=== PATIENT | male | born 2000 | race Caucasian/White ===

== ENCOUNTER 2023-02-08 18:16 | Emergency (ER) | payer OTHER, SELFPAY ==
--- NOTE | 2023-02-08 18:32 | ED.EXTPRO ---
HPI - Extremity Problem General Chief complaint: Extremity Problem,Nontraumatic Stated complaint: L LEG PAIN Source: patient Mode of arrival: ambulatory Limitations: no limitations History of Present Illness HPI Narrative: 22-year-old male presented for complaint of left leg pain for 2 weeks. Endorses intermittent 'tightness' to the lower hamstring, behind the knee, and the inner knee. Denies known injury. States he has been doing yoga and weight lifting for years without change. Has not taken anything for pain. Denies redness or swelling to the LE, denies decreased ROM. Related Data Allergies Allergy/AdvReac Type Severity Reaction Status Date / Time NKDA Allergy Mild Other Uncoded 02/08/23 18:29 Review of Systems Review of Systems: CONSTITUTIONAL: Denies body aches, fever, chills CARDIOVASCULAR: Denies chest pain, palpitations, or edema. RESPIRATORY: Denies cough or dyspnea. GASTROINTESTINAL: Denies abdominal pain, nausea, vomiting, or diarrhea. SKIN: Denies rash, itching, or wounds. MUSCULOSKELETAL: per HPI NEUROLOGIC: Denies headache, numbness, tingling, or weakness. All systems reviewed & are unremarkable except as noted in HPI and below PMFSH Past Medical History Medical History (Updated 02/08/23 @ 18:49 by Kenia Pendleton APRN) No pertinent past medical history Family History Family History Grandparent Diabetes mellitus Hypertension Family history of cardiovascular disease Family history of throat cancer Other Family history of headache disorder Family history of lung cancer Family history of malignant neoplasm of brain Social History Social History Smoking status: Never smoker Alcohol intake: never Comments At time of signature, I have reviewed and agree with nursing past medical, surgical, social and family history unless otherwise noted. Please see nursing chart for further information. There is no relevant family history pertinent to the presenting complaint Exam Narrative: GENERAL: Well-appearing, well-nourished, and in no acute distress. CHEST: Speaks in full sentences. No respiratory distress. HEART: Regular rate and rhythm. Normal and equal peripheral pulses. EXTREMITIES: Left LE has normal strength and sensation, full range of motion at the knee without pain. No swelling or ecchymosis, No point tenderness. No open wounds or obvious deformity; alignment normal pulse palpable and equal bilaterally, skin warm, dry, pink. Capillary refill less than 3 seconds. Ambulates with steady gait SKIN: Warm, dry, no rash. NEURO: Alert and oriented x3. PSYCH: Normal mood and affect Course Course Emergency Course: Patient is aware of diagnosis, understands and agrees to treatment plan. Anticipatory guidance given. Patient agrees to follow-up as directed and is aware of reasons to seek care at the emergency department. Portions of this record may have been created with voice recognition software Level of Care: Express Care Visit Vital Signs Vital signs: Reviewed MDM - Extremity (Nontraumatic) MDM Narrative Medical decision making narrative: Discussed physical exam findings with patient. He was concerned of DVT after Internet research. Discussed possible etiologies. No symptomatic evidence of DVT. Suspect musculoskeletal injury. advised supportive measures and signs/symptoms to go to the ER. Pt is appropriate for outpt treatment and f/u. Differential Diagnosis Differential diagnosis: Likely gout, superficial thrombophlebitis, deep vein thrombosis of lower extremity and other (Tendinitis, bursitis, arthralgia) Discharge Plan Discharge Clinical Impression: Left leg pain Patient Disposition: Home, Self-Care Condition: Stable Instructions: P.R.I.C.E. Treatment (ED) Additional Instructions: Rest and elevate the left leg; activity as tolerated Continue
[2023-02-08 18:34] VITALS: BP 148/97; PULSE 88; RESP 16; TEMP 37.2; O2SAT 100
== END 2023-02-08 18:55 | disposition home or self-care (01) ==
PROVIDERS: Emergency Provider Nurse Practitioner Family; PCP Family Medicine
DX: M79.652 Pain in left thigh (principal); M25.562 Pain in left knee
CPT/HCPCS: 99203; G0463

== ENCOUNTER 2023-06-29 18:15 | Emergency (ER) | payer SELFPAY ==
--- NOTE | ~2023-06-29 | XR_ITS ---
EXAMINATION: XR chest 2V DATE: 06/29/2023 18:35 INDICATION: Fatigue. Chest tightness. Shortness of breath. TECHNIQUE: Frontal and lateral views of the chest were obtained. COMPARISON: Chest 2 views 05/04/2017, CT abdomen 05/04/2017 FINDINGS: There is no pneumonia, pleural effusion, or pneumothorax. The heart size is normal. IMPRESSION: 1. No acute cardiopulmonary disease. Reviewed, dictated and finalized at location E.
[2023-06-29 18:24] VITALS: BP 139/93; PULSE 67; RESP 16; TEMP 37.1; O2SAT 100
--- NOTE | 2023-06-29 18:24 | ED.GENADULT ---
HPI - General Adult General Chief complaint: Chest Pain Stated complaint: Chest pain;shoulder pain; Time Seen by Provider: 06/29/23 18:24 Source: patient, RN notes reviewed and old records reviewed Mode of arrival: ambulatory Limitations: no limitations History of Present Illness HPI narrative: 22-year-old male presents to the [facility] with 1-1/2-2 week intermittent generalized chest tightness that radiates to the right shoulder intermittently. Patient states that he feels clammy sometimes. Three days ago states that he did vomit but no other nausea. Denies any pain, chest tightness, shoulder pain at this time on exam. Patient states that his hands feel clammy. No treatment prior to arrival Reports he has had no energy lately. Onset (ago): week(s) (2) Related Data Home Medications Medication Instructions Recorded Confirmed No Home Medications 06/29/23 06/29/23 Allergies Allergy/AdvReac Type Severity Reaction Status Date / Time NKDA Allergy Mild Other Uncoded 02/08/23 18:29 Review of Systems Review of Systems: All systems reviewed & are unremarkable except as noted in HPI and below Constitutional: Constitutional: Reports no additional constitutional complaints Eyes: Eyes: Reports no additional eye complaints ENT: Reports system reviewed and no additional complaints, except as documented Cardiovascular: Cardiovascular: Reports as per HPI, Denies chest pain, Denies chest pain at rest, Denies chest pain with activity, Reports diaphoresis, Denies syncope, Denies irregular heart rhythm, Denies claudication, Denies leg ulcers, Denies lightheadedness, Denies dyspnea and Denies slow heart rate Respiratory: Respiratory: Reports no additional respiratory complaints, Denies chest congestion, Denies cough and Denies dyspnea Gastrointestinal: Gastrointestinal: Reports no additional gastrointestinal complaints, Denies abdominal pain, Denies nausea and Denies vomiting Musculoskeletal: Musculoskeletal: Reports no additional musculoskeletal complaints Integumentary/Breasts: Skin/Breast: Reports system reviewed and no additional complaints, except as docu Neurologic: Reports system reviewed and no additional complaints, except as documented Psychiatric: Psychiatric: Reports no additional psychiatric complaints Allergic/Immunologic: Allergic/Immunologic: Reports no additional allergic/immunologic complaints PMFSH Past Medical History Medical History No pertinent past medical history Family History Family History Grandparent Diabetes mellitus Hypertension Family history of cardiovascular disease Family history of throat cancer Other Family history of headache disorder Family history of lung cancer Family history of malignant neoplasm of brain Social History Social History Smoking status: Never smoker Alcohol intake: never Comments At the time of my signature, I reviewed and agree with the nursing past medical, surgical, social, and family history. There is no relevant family history pertinent to the patient complaint. Exam Const: General: cooperative, comfortable, no acute distress, well developed, alert, anxious, tired appearing, well nourished and thin Nutritional Appearance: well nourished and thin Orientation/consciousness: patient oriented x3 Limitations: no limitations HENMT: Head: normal to inspection Ears: hearing grossly normal bilaterally, external ears normal, TM's normal bilaterally and EAC's normal Face/Nose/Sinus: Normal external nose present, Normal nares present, Normal nasal mucous membranes and turbinates present, no nasal discharge noted, normal facial exam, sinuses nontender and face symmetric Face and sinus: normal facial exam, sinuses nontender and face symmetric Mouth: Yes Normal oral and palatal mucosa present, Ye
== END 2023-06-29 19:08 | disposition home or self-care (01) ==
PROVIDERS: Emergency Provider Nurse Practitioner; PCP Family Medicine
DX: R53.83 Other fatigue (principal); R07.89 Other chest pain
CPT/HCPCS: 71046; 99213; G0463

== ENCOUNTER 2023-06-29 19:54 | Emergency (ER) | payer SELFPAY ==
--- NOTE | ~2023-06-29 | XR_ITS ---
EXAMINATION: XR chest 2V DATE: 06/29/2023 20:15 INDICATION: Chest pain. TECHNIQUE: Frontal and lateral views of the chest were obtained. COMPARISON: Chest 2 views at 6:33 PM FINDINGS: There is no pneumonia, pleural effusion, or pneumothorax. The heart size is normal. IMPRESSION: 1. No acute cardiopulmonary disease. Reviewed, dictated and finalized at location E.
--- NOTE | 2023-06-29 19:55 | ECG_ITS ---
Measurements Intervals [place] Rate: 78 P: 63 [place]: 122 QRS: 76 QRSD: 89 T: 51 QT: 361 QTc: 411 Interpretive Statements SINUS RHYTHM INCOMPLETE RIGHT BUNDLE BRANCH BLOCK BASELINE ARTIFACT- I, II, III, AVR, AVL, AVF, V1-V2, V6 BORDERLINE ECG NO PREVIOUS ECG AVAILABLE FOR COMPARISON Electronically Signed On 06-29-2023 20:16:54 CDT by Hayder Cheatham D.O.
[2023-06-29 19:58] VITALS: BP 139/91; PULSE 79; RESP 14; TEMP 37.2; O2SAT 100
[2023-06-29 20:09] LABS: Basophils Percent Auto 0.3 % (0.2-1.2); Eosinophils Percent Auto 0.4 % (0-4.4); Hematocrit 45.1 % (42.0-52.0); Hemoglobin 15.4 g/dL (14.0-18.0); Immature Granulocyte Absolute 0.03 K/mm3 (0.00-0.031); Immature Granulocyte Percent A 0.3 % (0-0.5); Lymphocytes Absolute Auto 2.28 K/mm3 (0.9-3.2); Lymphocytes Percent Auto 24.5 % (18.3-44.2); Mean Corpuscular HGB Conc 34.1 g/dl (32-36); Mean Corpuscular Hemoglobin 30.1 pg (26-34); Mean Corpuscular Volume 88.3 fl (80-100); Monocytes Absolute Auto 0.7 K/mm3 (0.1-0.6); Monocytes Percent Auto 7.3 % (2.6-8.5); Neutrophils Absolute Auto 6.2 K/mm3 (1.3-6.7); Neutrophils Percent Auto 67.2 % (45.5-73.1); Platelet Count Result 260 k/mm3 (150-375); Red Blood Count 5.11 M/mm3 (4.6-6.20); Red Cell Distribution Width 11.8 % (11.5-14.5); White Blood Count 9.3 K/mm3 (4.5-10.0)
[2023-06-29 20:21] LABS: Alanine Aminotransferase 15 U/L (6-50); Alkaline Phosphatase 58 U/L (38-126); Anion Gap 10 mmol/L (8-16); Aspartate Amino Transferase 34 U/L (17-59); Blood Urea Nitrogen 12 mg/dL (9-20); Calcium 9.3 mg/dL (8.4-10.2); Carbon Dioxide 25 mmol/L (22-30); Chloride 106 mmol/L (98-107); Estimated CRCL calculation 95 ml/min; Estimated Glomerular Filt Rate > 60; Glucose 98 mg/dL (65-110); Lipase 63 U/L (23-300); Prothrombin Time 13.9 Seconds (11.1-14.7); Sodium 141 mmol/L (137-145)
[2023-06-29 20:22] LABS: Partial Thromboplastin Time 25.4 SECONDS (22.3-36.8)
[2023-06-29 20:30] LABS: Troponin I < 0.012 ng/mL (0.000-0.034)
--- NOTE | 2023-06-29 22:34 | ED.GENADULT ---
HPI - General Adult General Chief complaint: Chest Pain Stated complaint: chest pain Time Seen by Provider: 06/29/23 21:44 History of Present Illness HPI narrative: This is a 22-year-old male presenting ED with a chief complaint of chest discomfort. The patient says that over the last week he has been having multiple episodes of chest heaviness. He describes it as a heaviness over his chest and makes it difficult to take deep breaths. It is associated with tingling/shaking in his hands and sweaty palms. is occurred about 3 times a day and resolves in 5-10 minutes after each episode. One of the episodes was associated with an episode of vomiting. It is worse at night. Patient denies any history of anxiety or panic disorder. Patient is a frequent marijuana user. patient denies fever chills headache chest pain difficulty breathing abdominal pain diarrhea. Related Data Home Medications Medication Instructions Recorded Confirmed No Home Medications 06/29/23 06/29/23 Allergies Allergy/AdvReac Type Severity Reaction Status Date / Time NKDA Allergy Mild Other Uncoded 06/[facility]/23 [facility] Past Medical History Medical History No pertinent past medical history Family History Family History Grandparent Diabetes mellitus Hypertension Family history of cardiovascular disease Family history of throat cancer Other Family history of headache disorder Family history of lung cancer Family history of malignant neoplasm of brain Social History Social History Smoking status: Never smoker Alcohol intake: never Exam Narrative: APPEARANCE: No apparent distress. Head: atraumatic. EYES: EOMI, NOSE: Atraumatic NECK: Trachea midline RESPIRATORY: No increased rate of breathing , clear to auscultation CARDIOVASCULAR: RRR, no peripheral edema ABDOMINAL: Non-distended soft nontender no guarding rebound MUSCULOSKELETAl: No obvious deformities NEURO: Alert. Moving 4/4 extremities SKIN:: Warm, dry. Normal color PSYCHIATRIC: Normal affect Course Vital Signs Vital signs: Vital Signs Temperature 98.9 F 06/29/23 19:58 Pulse Rate 79 06/29/23 19:58 Respiratory Rate 14 06/29/23 19:58 Blood Pressure 139/91 H 06/29/23 19:58 Pulse Oximetry 100 06/29/23 19:58 Oxygen Delivery Room Air 06/29/23 19:58 Temperature 98.9 F 06/29/23 19:58 Pulse Rate 79 06/29/23 19:58 Respiratory Rate 14 06/29/23 19:58 Blood Pressure 139/91 H 06/29/23 19:58 Pulse Oximetry 100 06/29/23 19:58 Oxygen Delivery Room Air 06/29/23 19:58 Medical Decision Making [facility] Narrative Medical decision making narrative: -Course: 22-year-old male presenting with intermittent episodes of chest pressure. Currently asymptomatic. workup was negative. Well-appearing with stable vital signs. Based on the history and physical this is most likely anxiety. Patient has been instructed to follow-up with primary care physician and return if his Symptoms become constant or he is getting worse. -DDX includes but is not limited to: Anxiety, asthma, panic disorder, substance use disorder, viral syndrome, bronchitis -Co-morbidities complicating care: Daily marijuana use -Social determinants of health: patient is unemployed and lives in his grandmother's basement. He wants to be a musicain. -Hx from independent Sources: grandmother @ bedside -Independent interpretation of studies: labwork normal. Troponin undetectable. chest x-ray normal. Independent EKG interpretation: Rhythm [sinus], Rate [78], [place] -[normal], [place] -[normal], QRS [narrow], QTC [normal], T waves -[negative for concerning inversions], ST Segments - [Negative for concerning elevations] Final interpretations: [Normal Sinus Rhythm] -Dx tests considered but not ordered: PE studies-[facility] negative
[2023-06-29 22:47] VITALS: BP 138/84; PULSE 61; RESP 20; O2SAT 99
[2023-06-29 23:17] VITALS: BP 138/84; PULSE 82; RESP 14; O2SAT 100
== END 2023-06-29 23:18 | disposition home or self-care (01) ==
LOC: ANHED 22:58
PROVIDERS: Emergency Medicine; Emergency Provider Emergency Medicine; PCP Family Medicine
DX: R07.89 Other chest pain (principal); I45.10 Unspecified right bundle-branch block
CPT/HCPCS: 36415; 71046; 80053; 83690; 84484; 85025; 85610; 85730; 93005; 99284